=== PATIENT | male | born 1970 | race Caucasian/White ===

== ENCOUNTER 2017-09-23 17:14 | Emergency (ER) | payer BC, OTHER ==
[2017-09-23 17:27] VITALS: BP 140/80; PULSE 80; TEMP 98.3; BMI 37.7
--- NOTE | 2017-09-23 17:28 | PDOC ---
Rapid Medical Evaluation Chief Complaint: Edema Time Seen by Provider: 09/23/17 17:24 Medical Evaluation: Allergies Allergy/AdvReac Type Severity Reaction Status Date / Time No Known Allergies Allergy Verified 08/20/13 17:46 09/23/17 17:24 I have performed a brief in-person evaluation of this patient. The patient presents with a chief complaint of: hx of HTN, legs swelling, shortness of breath x 2 weeks Pertinent physical exam findings: lungs ctab I have ordered the following: ekg, labs, cxr The patient will proceed to the ED for further evaluation. Discharge Disposition - Diagnosis SOB (shortness of breath) - Referrals - Patient Instructions - Post Discharge Activity
[2017-09-23 19:19] LABS: BASO % 0.9 % (0-2.0); EOS % 3.3 % (0-4.5); HEMATOCRIT 44.9 % (35.4-49); LYMPH % 26.9 % (8-40); MCH 27.5 pg (25.7-33.7); MCHC 33.4 g/dl (32.0-35.9); MEAN CELL VOLUME 82.4 fl (80-96); MEAN PLT VOLUME 8.9 fl (7.5-11.1); MONO % 8.9 % (3.8-10.2); PLATELET COUNT 273 K/MM3 (134-434); RBC 5.45 M/mm3 (4.00-5.60); RDW 16.2 % (11.9-15.9); WHITE BLOOD COUNT 9.3 K/mm3 (4.0-10.0)
[2017-09-23 19:38] LABS: INR 0.99 (0.82-1.09); PROTHROMBIN TIME (PATIENT) 11.2 SEC (9.98-11.88)
[2017-09-23 19:58] LABS: ANION GAP 9 (8-16); BILIRUBIN,TOTAL 0.8 mg/dL (0.2-1.0); BLOOD UREA NITROGEN 18 mg/dL (7-18); CALCIUM 8.9 mg/dL (8.5-10.1); CHLORIDE 103 mmol/L (98-107); CO2 25 mmol/L (21-32); CREATININE 1.4 mg/dL (0.7-1.3); GLUCOSE,RANDOM 108 mg/dL (74-106); MAGNESIUM 1.8 mg/dL (1.8-2.4); POTASSIUM 4.1 mmol/L (3.5-5.1); SGOT/AST 37 U/L (15-37); SGPT/ALT 53 U/L (12-78); SODIUM 137 mmol/L (136-145); TOT PROT 8.1 g/dl (6.4-8.2)
[2017-09-23 20:00] LABS: ALK PHOS 64 U/L (45-117)
[2017-09-23 20:01] LABS: N-TERMINAL BNP 23.12 pg/ml (5-125)
--- NOTE | 2017-09-23 22:16 | PDOC ---
*Physical Exam - Vital Signs Last Vital Signs Temp Pulse Resp BP Pulse Ox 98.3 F 80 19 140/80 95 09/23/17 17:23 09/23/17 17:23 09/23/17 17:23 09/23/17 17:23 09/23/17 17:23 ED Treatment Course - LABORATORY CBC & Chemistry Diagram: 09/23/17 19:08 09/23/17 19:08 - ADDITIONAL ORDERS Additional order review: Laboratory Results 09/23/17 09/23/17 09/23/17 19:08 19:08 19:08 PT with INR 11.20 INR 0.99 Sodium 137 Potassium 4.1 Chloride 103 Carbon Dioxide 25 Anion Gap 9 BUN 18 Creatinine 1.4 H Creat Clearance w eGFR 54.09 Random Glucose 108 H Calcium 8.9 Magnesium 1.8 Total Bilirubin 0.8 D AST 37 ALT 53 D Alkaline Phosphatase 64 Creatine Kinase 311 H Creatine Kinase Index 0.8 CK-MB (CK-2) 2.677 Troponin I < 0.02 B-Natriuretic Peptide 23.12 Total Protein 8.1 Albumin 4.0 09/23/17 19:08 RBC 5.45 MCV 82.4 MCHC 33.4 RDW 16.2 H D MPV 8.9 Neutrophils % 60.0 D Lymphocytes % 26.9 D Monocytes % 8.9 Eosinophils % 3.3 D Basophils % 0.9 *DC/Admit/Observation/Transfer Diagnosis at time of Disposition: SOB (shortness of breath), Patient left after triage - Discharge Dispostion Disposition: ELOPED - Referrals Referrals: Mahendra Carbajal MD [Primary Care Provider] - - Patient Instructions - Post Discharge Activity
--- NOTE | 2017-09-23 23:03 | PDOC ---
History of Present Illness - General Chief Complaint: Edema Stated Complaint: PAIN/EDEMA TO LOWER EXTREMITIES Time Seen by Provider: 09/23/17 17:24 History Source: Patient Exam Limitations: No Limitations - History of Present Illness Initial Comments: CHIEF COMPLAINT: 47 y/o afebrile male with PMH HTN and CHF c/o swollen legs x 3 days. HISTORY OF PRESENT ILLNESS: He states he takes his HTN/diuretic combo drug only when his legs swell. He states for the past 3 days he's been taking it with little improvement in his swelling. He denies JENNINGS, dizziness, cough, orthopnea, CP, SOB, abd pain, n/v/d. PCP is Dr. Carbajal. Vital signs on arrival are notable for O2 sat of 95% on RA REVIEW OF SYSTEMS: GENERAL/CONSTITUTIONAL: No fever/chills. No weakness. No weight change. HEAD, EYES, EARS, NOSE AND THROAT: No change in vision. No ear pain or discharge. No sore throat. CARDIOVASCULAR: No chest pain or shortness of breath. RESPIRATORY: No cough, wheezing, or hemoptysis. GASTROINTESTINAL: No abd pain, nausea, vomiting, diarrhea. GENITOURINARY: No dysuria, frequency, or change in urination. MUSCULOSKELETAL: +LE swelling. No neck or back pain. SKIN: No rash or easy bruising. NEUROLOGIC: No headache, vertigo, loss of consciousness, or loss of sensation. PHYSICAL EXAM: GENERAL: The patient is awake, alert, and fully oriented, in no acute distress. He is well appearing. He is lying flat in the ER without difficulty. HEAD: Normal with no signs of trauma. ENT: Pupils equal, round and reactive to light, extraocular movements intact, sclera anicteric, conjunctiva clear. Neck supple. LUNGS: Clear to auscultation bilaterally. Normal excursion. No respiratory distress or use of accessory muscles. CV: RRR, S1/S2, no MRG. Cap refill < 2 sec. ABDOMEN: Soft, non-distended, non-tender even to deep palpation, no hepatomegaly or splenomegaly, no masses. EXTREMITIES: Normal range of motion. 1+ pitting edema b/l LEs. NEUROLOGICAL: Normal speech, normal gait. CN II-XII grossly intact. PSYCH: Normal mood, normal affect. SKIN: Warm, dry, normal turgor, no rashes or lesions noted. Past History - Past Medical History Allergies/Adverse Reactions: Allergies Allergy/AdvReac Type Severity Reaction Status Date / Time No Known Allergies Allergy Verified 09/23/17 17:27 Home Medications: Ambulatory Orders Citalopram Hydrobromide [Celexa -] 20 mg PO DAILY 08/20/13 Esomeprazole Mag Trihydrate [Nexium] 40 mg PO DAILY 08/20/13 Amlodipine Besylate 5 mg PO ASDIR 09/23/17 Azilsartan Med/Chlorthalidone [Edarbyclor 40-12.5 mg Tablet] 1 each PO ASDIR 04/02 Cardiac Disorders: Yes (poss CHF?) COPD: No GI Disorders: Yes (ACID REFLUX) Psychiatric Problems: Yes (DEPRESSION,) - Suicide/Smoking/Psychosocial Hx Smoking History: Never smoked Information on smoking cessation initiated: No Hx Alcohol Use: No Drug/Substance Use Hx: No Substance Use Type: None *Physical Exam - Vital Signs Last Vital Signs Temp Pulse Resp BP Pulse Ox 98.3 F 80 19 140/80 95 09/23/17 17:23 09/23/17 17:23 09/23/17 17:23 09/23/17 17:23 09/23/17 17:23 Heart Score/ECG Review - ECG Intrepretation Comment:: Twelve-lead EKG was performed and reviewed by Dr. Lee. There is normal sinus rhythm with a normal rate. The axis is normal. The intervals are normal. There are no ST or T wave abnormalities. Impression: Normal twelve-lead EKG ED Treatment Course - LABORATORY CBC & Chemistry Diagram: 09/23/17 19:08 09/23/17 19:08 - ADDITIONAL ORDERS Additional order review: Laboratory Results 09/23/17 09/23/17 09/23/17 19:08 19:08 19:08 PT with INR 11.20 INR 0.99 Sodium 137 Potassium 4.1 Chloride 103 Carbon Dioxide 25 Anion Gap 9 BUN 18 Creatinine 1.4 H Creat Clearance w eGFR 54.09 Random Glucose 108 H Calcium 8.9 Magnesium 1.8 Total Bilirubin 0.8 D AST 37 ALT 53 D Alkaline Phosphatase 64 Creatine Kinase 311 H Creatine Kinase Index 0.8 CK-MB (CK-2) 2.677 Troponin I < 0.02 B-Natriuretic Peptide 23.12 Total Protein 8.1 Albumin 4.0 09/23/17 19:08 RBC 5.45 MCV 82.4 MCHC 33.4 RDW 16.2 H D MPV 8.9 Neutrophils % 60.0 D Lymphocytes % 26.9 D Monocytes % 8.9 Eosinophils % 3.3 D Basophils % 0.9 Medical Decision Making - Medical Decision Making A/P: 47 y/o male with LE swelling x 3 days. BMP, cardiac labs, EKG, CXR normal. Patient with no difficulty breathing. Went over all labs with him. He has an appointment with Dr. Carbajal tomorrow. Instructed him to return to the ER with any worsening or concerning symptoms. The patient verbalizes understanding of all instructions, has no further questions and is awaiting discharge. *DC/Admit/Observation/Transfer Diagnosis at time of Disposition: Edema Qualifiers: Edema type: unspecified Qualified Code(s): R60.9 - Edema, unspecified - Discharge Dispostion Disposition: HOME Condition at time of disposition: Good - Referrals Referrals: Mahendra Carbajal MD [Primary Care Provider] - - Patient Instructions Printed Discharge Instructions: DI for Peripheral Edema -- Bilateral Additional Instructions: Discharge Instructions: -Your EKG, CXR, BNP and troponin was normal -Please follow up with Dr. Carbajal in the morning -Please return to the ER with any worsening or concerning symptoms - Post Discharge Activity
--- NOTE | 2017-09-24 13:40 | EKG ---
Test Reason : Blood Pressure : / mmHG Vent. Rate : 072 BPM Atrial Rate : 072 BPM P-R Int : 166 ms QRS Dur : 100 ms QT Int : 370 ms P-R-T Axes : 036 067 016 degrees QTc Int : 405 ms NORMAL SINUS RHYTHM NORMAL ECG WHEN COMPARED WITH ECG OF 20-AUG-2013 20:27, NO SIGNIFICANT CHANGE WAS FOUND Confirmed by GOVIND ALBRECHT MD ([id number]) on 09/24/2017 1:39:29 PM Referred By: Confirmed By:GOVIND ALBRECHT MD
== END 2017-09-23 23:10 | disposition home or self-care (01) ==
LOC: JER 17:14 → JERFT 17:14
DX: R60.0 Localized edema (principal); I50.9 Heart failure, unspecified; I10 Essential (primary) hypertension; K21.9 Gastro-esophageal reflux disease without esophagitis; F32.9 Major depressive disorder, single episode, unspecified
CPT/HCPCS: 36415; 71046-TC-FY; 80053; 82550; 82553; 83735; 83880; 84484; 85025; 85610; 93005; 93010; 99282-25